=== PATIENT | male | born 1955 | race Two or more races ===

== ENCOUNTER 2023-03-23 13:26 | Inpatient (IN) | payer MEDICARE ==
[2023-03-23] VITALS (8 sets, daily range): BP systolic 119–150; BP diastolic 59–81
[~2023-03-23] VITALS: Ht 157.5 cm; Wt 50.0 kg
[2023-03-23] MEDS ORDERED: iohexol 350MG/ML 100ml bottle IV ONE ×2 (13:31→15:06)
[2023-03-23] MEDS ORDERED: heparin 1,000 UNITS/NS 500ml 500 ML ONE (13:31)
[2023-03-23] MEDS ORDERED: LIDOcaine 1% 30ml preserv. free vial ONE ×2 (13:31→15:06)
--- NOTE | 2023-03-23 13:33 | NUR ---
STEMI alert canceled by Cardiology team
[2023-03-23] MEDS ORDERED: morphine 4 MG/ML inj SYRINge IV ONE (13:35)
[2023-03-23] MEDS ORDERED: ondansetron/PF 4mg/2ml inj IV ONE (13:35)
[2023-03-23] MEDS ORDERED: metoprolol tartrate 1mg/ml inj IV ONE (13:40)
[2023-03-23] MEDS ORDERED: heparin 10,000 units/1 ML INJ IV PRN (13:40)
[2023-03-23] MEDS ORDERED: heparin 25,000 UNIT/250ml bag 250 ML IV PRN (13:40)
[2023-03-23] MEDS ORDERED: heparin 10,000 units/1 ML INJ IV ONE (13:40)
--- NOTE | 2023-03-23 13:49 | NUR ---
Dr. Hernandez and CHELLE Loyd (cardiology team) came by to see patient and reviewed the EKG
[2023-03-23 14:11] LABS: ALANINE AMINOTRANSFERASE 24 U/L (12-78); ALBUMIN 4.2 G/DL (3.4-5.0); ALBUMIN/GLOBULIN RATIO 1.3 (1.1-1.5); ALKALINE PHOSPHATASE 73 IU/L (46-116); ANION GAP 15 (8-16); ASPARTATE AMINO TRANSFERASE 12 U/L (10-37); BILIRUBIN,TOTAL 0.5 MG/DL (0.1-1.0); BLOOD UREA NITROGEN 17 MG/DL (7-18); BUN/CREATININE RATIO 18.7 (10.0-20.0); CHLORIDE 98 MMOL/L (99-107); CREATININE 0.91 MG/DL (0.60-1.10); GLUCOSE 184 MG/DL (70-104); POTASSIUM 3.9 MMOL/L (3.5-5.1); SODIUM 137 MMOL/L (135-145); TOTAL CARBON DIOXIDE 24.3 MMOL/L (24-32); TOTAL PROTEIN 7.5 G/DL (6.4-8.2); eGFR 82 ML/MIN
[2023-03-23 14:13] LABS: BASOPHILS # (AUTO) 0.1 X10'3 (0-0.2); BASOPHILS % (AUTO) 0.6 % (0-1); EOSINOPHILS % (AUTO) 0.4 % (0-6); HEMATOCRIT 41.3 % (42.0-52.0); LYMPHOCYTES # (AUTO) 1.6 X10'3 (1.1-4.8); LYMPHOCYTES % (AUTO) 17.8 % (21-51); MEAN CORPUSCULAR HEMOGLOBIN 31.2 PG (27.0-31.0); MEAN CORPUSCULAR HGB CONC 33.8 g/dL (33.0-36.5); MEAN CORPUSCULAR VOLUME 92.4 FL (78-98); MEAN PLATELET VOLUME 9.9 FL (7.4-10.4); MONOCYTES # (AUTO) 0.5 X10'3 (0-0.9); MONOCYTES % (AUTO) 5.2 % (2-12); PLATELET COUNT 297 X10'3 (140-440); RED BLOOD COUNT 4.47 X10'6 (4.70-6.10); WHITE BLOOD COUNT 9.2 X10'3 (4.5-11.0)
[2023-03-23 14:26] LABS: MAGNESIUM 1.2 MG/DL (1.5-2.4)
[2023-03-23 14:29] LABS: APTT 25 SECONDS (22-32)
--- NOTE | 2023-03-23 14:51 | NUR ---
1st troponin negative. Per Dr. Rosenbaum, we can give the ordered Haprin bolus and heparin drip
[2023-03-23] MEDS ORDERED: iohexol 350 MG/ML 50ML vial IV ONE (15:06)
[2023-03-23] MEDS ORDERED: midazolam 1 mg/ML 2ml injection ONE (15:06)
[2023-03-23] MEDS ORDERED: fentaNYL/PF 50MCG/1 ML 2ML syringe ONE (15:06)
--- NOTE | 2023-03-23 15:27 | NUR ---
Patient just went to lab rn accompanied by RN at lab rn
[2023-03-23] MEDS ORDERED: tirofiban 12.5mg in NS 250mL 0 ML IV ONE (15:42)
[2023-03-23] MEDS ORDERED: proCHLORperazine 10 MG/2 ml inj ONE (15:50)
[2023-03-23] MEDS ORDERED: nitroGLYCERIN-Tridil 50MG/D5W 250 ML IV ONE (15:58)
[2023-03-23] MEDS ORDERED: hydrALAZINE 20mg/ml inj. IV ONE (15:59)
[2023-03-23] MEDS ORDERED: haloperidol lactate 5mg/ml inj IM ONE (16:25)
[2023-03-23] MEDS ORDERED: magnesium Cl slow-release 64mg tablet PO PRN (17:15)
[2023-03-23] MEDS ORDERED: potassium Cl 40MEQ/1/2NS 520ml 520 ML IV PRN (17:15)
[2023-03-23] MEDS ORDERED: mag hydrox/Alum hydrox/simeth 30ml oral suspension PO PRN (17:15)
[2023-03-23] MEDS ORDERED: HYDROcodone/acetaminophen 10/325mg tab PO PRN (17:15)
[2023-03-23] MEDS ORDERED: acetaminophen 325mg tablet PO PRN ×2 (17:15)
[2023-03-23] MEDS ORDERED: HYDROcodone/acetaminophen 5mg/325mg tablet PO PRN (17:15)
[2023-03-23] MEDS ORDERED: LORazepam 2 mg/ml vial IV PRN ×2 (17:15→20:15)
[2023-03-23] MEDS ORDERED: magnesium 2GM in 50ml NS 50 ML IV PRN (17:15)
[2023-03-23] MEDS ORDERED: bisacodyl 10mg suppository rectal RC PRN (17:15)
[2023-03-23] MEDS ORDERED: ondansetron 4mg rapidly disintigrating tab PO PRN (17:15)
[2023-03-23] MEDS ORDERED: ondansetron/PF 4mg/2ml inj IV PRN (17:15)
[2023-03-23] MEDS ORDERED: HYDROmorphone inj. 0.5 MG/0.5 ML DISP.SYRIN IV PRN (17:15)
[2023-03-23] MEDS ORDERED: hydrOXYzine 10 MG tablet PO PRN (17:15)
[2023-03-23] MEDS ORDERED: magnesium 4gm in 100ml NS 100 ML IV PRN (17:15)
[2023-03-23] MEDS ORDERED: magnesium hydroxide 30ml (MOM) UD suspension PO PRN (17:15)
[2023-03-23] MEDS ORDERED: potassium Cl 20 mEq SR tablet PO PRN ×2 (17:15)
[2023-03-23] MEDS ORDERED: HYDROmorphone/PF 0.2 MG/ML SYRINGE IV PRN (17:15)
--- NOTE | 2023-03-23 17:15 | NUR ---
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 Bedside report received. Patient is to stay flat until 2200.
[2023-03-23] MEDS ORDERED: insulin Lispro (HumaLOG) vial - multi-dose SQ SCH (17:30)
[2023-03-23] MEDS ORDERED: DEXTROSE 15 GM of carb/4 tabs (each vial/BOTTLE has 4 tablets) PO PRN ×2 (17:30)
[2023-03-23] MEDS ORDERED: glucagon, human recombinant 1mg kit SUBCUT PRN (17:30)
[2023-03-23] MEDS ORDERED: dextrose 50%-water 50ml dispensing syringe IV PRN ×2 (17:30)
[2023-03-23] MEDS ORDERED: MESSAGE TO PHARMACY PO ONE (17:30)
[2023-03-23 18:04] LABS: HEMOGLOBIN A1C 6.9 % (4.5-6.2)
[2023-03-23] MEDS ORDERED: OXAZEpam 15mg capsule PO PRN (18:10)
[2023-03-23] MEDS ORDERED: proCHLORperazine 10 MG/2 ml inj IV PRN (18:10)
[2023-03-23] MEDS ORDERED: nitroGLYCERIN 0.4mg SUBLingual tab SL PRN (18:10)
--- NOTE | 2023-03-23 18:30 | NUR ---
Patient in room PCU 3014. I have received report from Mee LUNDBERG and had the opportunity to ask questions and assume patient care. Pt is laying in bed, flat on back with no signs of bleeding in right groin.
--- NOTE | 2023-03-23 18:35 | NUR ---
Problems reprioritized. Patient report given, questions answered & plan of care reviewed with Reyna GAMEZ.
[2023-03-23] MEDS: docusate sod 100mg capsule PO SCH (20:12)
[2023-03-23] MEDS: K and/or MAG REPLACEMENT MC SCH (20:13)
[2023-03-23] MEDS ORDERED: insulin glargine (Lantus) pen - multi-dose SQ SCH (21:00)
[2023-03-23] MEDS ORDERED: temazepam 15mg capsule PO PRN (21:00)
[2023-03-23] MEDS: normal saline 1000ml 1,000 ML IV SCH (21:55)
[2023-03-23] MEDS: pantoprazole 40MG/NS 100ML BAG 100 ML IV SCH (21:56)
[2023-03-23] MEDS: sertraline 50mg tablet PO SCH (21:56)
[2023-03-24 01:30] VITALS: BP 133/74
[2023-03-24] MEDS: normal saline 1000ml 1,000 ML IV SCH (03:15)
[2023-03-24 04:00] VITALS: BP 113/61
--- NOTE | 2023-03-24 04:54 | NUR ---
Groin site continues with no signs of bleeding. no change in neuro status. will continue to monitor.
[2023-03-24 07:00] VITALS: BP 137/73
[2023-03-24 07:00] LABS: HEMATOCRIT 38.7 % (42.0-52.0); HEMOGLOBIN 12.6 g/dl (14.0-17.9); MEAN CORPUSCULAR HEMOGLOBIN 31.1 PG (27.0-31.0); MEAN CORPUSCULAR HGB CONC 32.4 g/dL (33.0-36.5); MEAN PLATELET VOLUME 9.3 FL (7.4-10.4); PLATELET COUNT 228 X10'3 (140-440); RED BLOOD COUNT 4.03 X10'6 (4.70-6.10); RED CELL DISTRIBUTION WIDTH 14.3 % (11.5-14.5); WHITE BLOOD COUNT 11.2 X10'3 (4.5-11.0)
[2023-03-24 07:13] LABS: ALANINE AMINOTRANSFERASE 21 U/L (12-78); ALBUMIN 3.1 G/DL (3.4-5.0); ALKALINE PHOSPHATASE 61 IU/L (46-116); ANION GAP 12 (8-16); BILIRUBIN,TOTAL 0.6 MG/DL (0.1-1.0); BLOOD UREA NITROGEN 18 MG/DL (7-18); BUN/CREATININE RATIO 30.5 (10.0-20.0); CALCIUM 8.3 MG/DL (8.5-10.1); CHLORIDE 105 MMOL/L (99-107); CREATININE 0.59 MG/DL (0.60-1.10); GLUCOSE 143 MG/DL (70-104); MAGNESIUM 1.3 MG/DL (1.5-2.4); SODIUM 135 MMOL/L (135-145); TOTAL CARBON DIOXIDE 18.4 MMOL/L (24-32); TOTAL PROTEIN 6.1 G/DL (6.4-8.2); eGFR > 90 ML/MIN
[2023-03-24 07:14] LABS: ASPARTATE AMINO TRANSFERASE 36 U/L (10-37); POTASSIUM 4.6 MMOL/L (3.5-5.1)
[2023-03-24 07:42] LABS: PLATELET ESTIMATE NORMAL; TOTAL CELLS COUNTED 100
[2023-03-24] MEDS: sertraline 50mg tablet PO SCH (07:43)
[2023-03-24] MEDS: docusate sod 100mg capsule PO SCH (07:43)
[2023-03-24] MEDS: K and/or MAG REPLACEMENT MC SCH (08:00)
[2023-03-24] MEDS: pantoprazole 40MG/NS 100ML BAG 100 ML IV SCH (08:43)
[2023-03-24] MEDS ORDERED: OMEP20TA23 PO (12:32)
== END 2023-03-24 12:51 | disposition home or self-care (01) | DRG 392 ==
LOC: ER 13:26 → ED HOLD 16:41 → PCU 3S 17:32
PROVIDERS: ADMIT Family Medicine; ATTEND Family Medicine
PROC: 4A023N7 Measurement of Cardiac Sampling and Pressure, Left Heart, Percutaneous Approach (ICD-10-PCS; principal; 2023-03-23)
PROC: B2111ZZ Fluoroscopy of Multiple Coronary Arteries using Low Osmolar Contrast (ICD-10-PCS; 2023-03-23)
PROC: B2151ZZ Fluoroscopy of Left Heart using Low Osmolar Contrast (ICD-10-PCS; 2023-03-23)
PROC: B41F1ZZ Fluoroscopy of Right Lower Extremity Arteries using Low Osmolar Contrast (ICD-10-PCS; 2023-03-23)
DX: K29.70 Gastritis, unspecified, without bleeding (principal); R07.89 Other chest pain; I25.119 Atherosclerotic heart disease of native coronary artery with unspecified angina pectoris; E11.9 Type 2 diabetes mellitus without complications; E83.42 Hypomagnesemia; M54.9 Dorsalgia, unspecified; F41.0 Panic disorder [episodic paroxysmal anxiety]; G89.4 Chronic pain syndrome; J43.9 Emphysema, unspecified; M54.50 Low back pain, unspecified; R63.4 Abnormal weight loss; F17.210 Nicotine dependence, cigarettes, uncomplicated; F32.A Depression, unspecified; I25.2 Old myocardial infarction; Z79.84 Long term (current) use of oral hypoglycemic drugs; Z71.6 Tobacco abuse counseling
CPT/HCPCS: 36415; 71045; 80053; 82948; 83036; 83735; 83880; 84443; 84484; 85007; 85025; 85610; 85730; 93005; 93458; 96374; 99285; A6258; C1760; C9113; G0378; J0360; J0780; J1644; J1815; J2060; J2250; J2270; J2405; J3010; J3246; J3490; J7030; Q9967